=== PATIENT | male | born 1930 | race Caucasian/White ===

== ENCOUNTER 2016-07-16 21:57 | Inpatient (IN) | payer MEDICARE ==
[~2016-07-16] VITALS: Ht 175.3 cm; Wt 81.5 kg
--- NOTE | 2016-07-16 01:30 | NUR ---
Admission: Pt arrived to room 2007 at 2325 from [facility] in stable condition on 2L NC of oxygen with a heparin gtt infusing at 24 mls/hour or 1200 units/hour. Pt denies any SOB or pain. Pt placed on continuous telemtry monitoring and MD paged regarding pt's arrival. Initial assessment completed as charted. Dr. Ramirez and Dr. Mckeon at the bedside. Admission completed as charted. Adjusting heparin gtt per PE heparin protocol. Will cont. to closely monitor.
[~2016-07-16 21:57] MED LIST: CARV12.5 PO; EFF375 PO; LOSA-35 PO; LRZ.5T1 PO; SMV40T PO; ZLP5T PO; [UNRECOGNIZED DRUG - CODE] IM
[2016-07-16 23:35] VITALS: BP 150/88; PULSE 72; RESP 24; O2SAT 94
[2016-07-16 23:36] VITALS: PULSE 73
[2016-07-16 23:42] VITALS: PULSE 75
[2016-07-16] MEDS ORDERED: Ondansetron 2 mg/mL 2 mL Inj IVPUSH PRN (23:50)
[2016-07-16] MEDS ORDERED: Alum-Mag Hydrox-Simeth 30 mL Suspension PO PRN (23:50)
[2016-07-16] MEDS ORDERED: Polyethylene Glycol (PEG) 17 Gm Powder PO PRN (23:50)
[2016-07-16] MEDS ORDERED: HYDROcodone-APAP 5-325 mg Tablet PO PRN (23:50)
[2016-07-16] MEDS ORDERED: Heparin 5,000 Unit/mL Inj IVPUSH PRN (23:55)
[2016-07-17] VITALS (8 sets, daily range): BP systolic 123–159; BP diastolic 78–94; PULSE 64–82; RESP 16–24; O2SAT 94–100
[2016-07-17 00:26] LABS: BASOPHILS % (AUTO) 0.2 % (0-3); EOSINOPHILS % (AUTO) 1.5 % (0-5); MONOCYTES % (AUTO) 10.4 % (4-12); NEUTROPHILS % (AUTO) 71.5 % (40-74); Platelet Count 128 bil/L (150-400)
[2016-07-17] MEDS ORDERED: LORazepam 0.5 mg Tablet PO PRN (00:30)
[2016-07-17] MEDS: Heparin 25K Unit/500mL 0.45 NS 25,000 UNIT in IV Premix 1 EACH IV SCH ×2 (00:40→23:42)
[2016-07-17] MEDS: 0.9% Sodium Chloride 1,000 ML IV SCH ×2 (00:42→10:57)
--- NOTE | 2016-07-17 00:48 | PCM.HPMED ---
Subjective Date of Service Jul 17, 2016 Primary Provider: Admitting Physician: Antonio Ramirez MD Primary Care Physician: Glenn Bernardo MD Attending Physician: Antonio Ramirez MD Admit Status: Direct Admit (From [facility]) Chief Complaint: Pulmonary Embolism History of Present Illness: Patient is an 86 y.o. 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 Patient is a direct admit from [facility] for treatment of pulmonary embolism with right sided heart strain. Patient stated that he was feeling fine until three weeks ago when he began to fee fatigued, he noticed elevation in his blood pressure, had episodes of tachycardia, and worsening balance issues. Patient sought outpatient help, changed his blood pressure medications and started home health PT, all of which did not significantly help. Patient stated that on the evening of 07/15/16 and the morning of 07/16/16 his symptoms dramatically worsened " I could only walk 50 feet before I felt short of breath and had to sit down," he noted that symptoms quickly resolved but he was worried and sought emergency medical care. At the ED patient noted to be tachycardic, short of breath, CT scan of chest was done and showed PE with right sided heart strain, patient was started on Heparin drip and ER notified [facility] ED who prompted direct admit and cardiology consult for heart catheterization and likely TPA administration. Currently patient denies shortness of breath, chest pain, chest pressure, changes in vision, worsening dizziness, loss of balance, numbness, tingling, fever, chills , headache. Review of Systems: Comprehensive review of systems conducted and was negative except for the pertinent positives listed above. Allergies Coded Allergies: ROBERTO Inhibitors (Verified Allergy, Unknown, cough, 07/16/16) celecoxib (Verified Allergy, Unknown, Rash, 07/16/16) Sulfonamide in celebrex Home Medications Carvediol 25 mg BID Clobetasol Allopurinol Butamide Venlafaxine Ativan HCTZ/lisinopril PMH Lichen planus Cervical radiculopathy with residual left arm weakness LBBB Last ECHO EF 45% 2013 Gout PE DVT Sleep Apnea uses CPAP Hyperlipidemia Surgical History Laminectomy C3-7 Cholecystectomy Family History No family history of PE/DVT Social History Hx Alcohol Use: No Hx Substance Use: No Hx Tobacco Use: Yes Smoking Status: Former Smoker (quit 60 years ago) Exam Vital Signs Vital Sign - Last Date Time Temp Pulse Resp B/P Pulse Ox O2 Delivery O2 Flow Rate FiO2 07/16/16 23:36 73 07/16/16 23:35 36.9 24 150/88 94 Nasal Cannula 2.00 Exam General: Alert, Oriented X3, Cooperative, No Acute Distress Head: Normocephalic, atraumatic. External ears normal. Eyes: PERRLA, EOMI. Anicteric sclerae. Mouth: Mouth Normal, Mucous Membranes Moist/[place] Neck: Neck supple with full range of motion. Chest & Lungs: Clear to auscultation bilaterally with no crackles, wheezes, or rhonchi. Cardiovascular: Regular Rate/Rhythm, Normal S1, Normal S2, No Murmurs/Rubs/ Gallops Abdomen: Non-tender, Non-distended, No masses, Normoactive bowel tones, Soft Musculoskeletal: Normal Range of Motion, residual weakness left hand and arm duet o cervical radiculopathy Extremities: No cyanosis/clubbing/edema bilaterally Neurological: Grossly Neurologically Intact, Cranial Nerves 2-12 Intact, Normal Speech, Strength Normal 4/4 ext, Ambulates with cane, Sensation Intact, Cerebellar Function nl Finger-Nose Lab and Diagnostics Result Diagram: 07/17/16 0012 X-Rays, CTs and MRIs CXR [facility] IMPRESSION: Interval improvement with resolution of right upper lobe opacities. Mild interstitial stranding densities may be chronic. Follow up non contrast CT chest might be considered to compare with previous CTA of 06/28/2014 Emil Ray M.D. on 07/16/16 at 1649 [facility] 1. Multiple bilateral pulmonary artery filling defects within all loves consistent with pulmonary embolism. There is also evidence of right heart strain 2. Bilateral scarring in lungs without acute consolidation or evidence of pulmonary infarcts 3. Enlarged mediastinal and hilar lymphnodes with calcifications are non specific but likely represent sequelae of old granulomatous disease Kyle Edwards M.D. 07/16/16 1741 12-lead ECG R 81 NSR LBBB normal axis Qtc 443 no signs if ischemia Assessment & Plan Patient is an 86 y.o. 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 Admitted to hospital from [facility] for treatment of PE with right sided heart strain. Labs done at [facility] : BUN 35, Cr 1.6 eGFR 43.8 Hgb 13.1 Hct38.7, MCV 106.7, PLT 137 D-Dimer 4075 normal <230 1. PE with right heart strain, acute - Patient initially worked up at [facility], CT scan showed PE with right heart strain - Continue Heparin drip for PE per protocol - Check INT/PTT - CBC ordered - CMP ordered - Doppler US LE b/l ordered, pending - Continue Tele - Continuos Pulse Ox - UA ordered - Cardiology aware of patient will see in AM and decide on interventional cath and TPA for PE Chronic conditions Gout - Hold home med Insomnia - Melatonin 5 mg Anxiety -Ativan 0.5 mg PRN Depression -Continue home med Afib - Continue home med Lichen planus -continue home med HTN - Continue home med CODE STATUS: LIMITED INTERVENTIONS, NO VENT, NO INTUBATION DVT prophlyxis: Heparin drip per protocol Patient is admitted under inpatient status with expected length of stay greater than 2 midnights due to severity of presenting symptoms, risk of adverse event, and complexity of treatment plan. Pain Evaluation: Adequate Pain Control Resuscitation Status: Limited Interventions Attending Statement The patient was seen and examined together with Dr. Cheney on 07/16 and I agree with the history, exam and plan as outlined in the note above. DAMEON CHENEY DO Jul 17, 2016 00:48 Antonio Ramirez MD Jul 17, 2016 02:20
[2016-07-17 01:01] LABS: Magnesium 1.7 mg/dL (1.6-2.6)
[2016-07-17 01:20] LABS: APPEARANCE,URINE CLEAR (CLEAR,HAZY); COLOR,URINE YELLOW (YELLOW); OCCULT BLOOD,URINE TRACE (NEGATIVE)
[2016-07-17] MEDS ORDERED: CARV25TA2 PO (04:02)
[2016-07-17] MEDS ORDERED: ZYL100 PO (04:03)
[2016-07-17] MEDS ORDERED: VENL37.57 PO (04:05)
[2016-07-17] MEDS ORDERED: CLOB15CR3 TOPICAL (04:08)
--- NOTE | 2016-07-17 04:41 | ABG ---
DateTimeAnalyzed 04:38:00 -_ pH ____7.491 - 7.350 7.450 pCO2 ___32.2__ -mmHg 35.0 45.0 pO2 ___58.4__ -mmHg 69.0 116 HCO3- ___24.4__ -mmol/L 22.0 26.0 ABE ____1.8__ -mmol/L -2.0 2.0 tHb ___11.1__ -g/dL O2Hb ___88.2__ -% COHb ____1.7__ -% MetHb ____0.8__ -% sO2 ___90.5__ -% 25.0 FIO2 ___21.0__ -% Drawn By MD - Date/Time Notified____ 04:41:00 -_ Liter_Flow ____2.0__ -L/min Oxygen Device 1 __CANNULA - Notified By MD - Notified Whom RN T JIMMY - B 749 -mmHg tO2 ___13.8__ -Vol% [facility] test _Positive -
[2016-07-17 06:14] LABS: BASOPHILS % (AUTO) 0.3 % (0-3); MONOCYTES % (AUTO) 10.1 % (4-12); Mean Corpuscular Hemoglobin 36.1 pg (27.0-35.0); Mean Corpuscular Volume 107.1 fL (81-100); NEUTROPHILS % (AUTO) 70.9 % (40-74); Platelet Count 140 bil/L (150-400)
[2016-07-17] MEDS ORDERED: TEST200V20 IM (07:57)
--- NOTE | 2016-07-17 13:08 | DRSVH ---
[facility] [address] [place] [address] Echocardiogram Report Name: VISH BONILLA Date: 07/17/2016 Height: 69 in Hospital Exam Location: [facility] Weight: 175 lb Gender: Male BSA: 2.0 m2 : 1930 Age: 86 yrs BP: 144/89 mmHg Reason For Study: Pulmonary- Embolism Ordering Physician: Performed By: Parvin Campos Referring Physician: Amna Cardoza Interpretation Summary Left ventricular wall thickness is mild-moderately increased. Left ventricular systolic function is borderline reduced. Left ventricular ejection fraction is estimated to be 50 +/- 5%. Septal motion is consistent with conduction abnormality. There are no focal wall motion abnormalities. Assessment of diastolic parameters indicates a relaxation abnormality of the left ventricle, consistent with normal filling pressures. The right ventricle is normal in size and function. The right ventricular systolic pressure is estimated at 55 mmHg assuming a right atrial pressure of 8 mm Hg. Both atria are normal in size. There is no significant valvular heart disease. The ascending aorta is moderately enlarged. Procedure: A two-dimensional transthoracic echocardiogram with color flow and Doppler was performed. The study quality was technically adequate. There is no prior echocardiogram noted for this patient. The patient was in normal sinus rhythm during the exam. Left Ventricle: Left ventricular wall thickness is mild-moderately increased. The left ventricular cavity is small. Left ventricular systolic function is borderline reduced. Left ventricular ejection fraction is estimated to be 50 +/- 5%. Septal motion is consistent with conduction abnormality. There are no focal wall motion abnormalities. Assessment of diastolic parameters indicates a relaxation abnormality of the left ventricle, consistent with normal filling pressures. Right Ventricle: The right ventricle is normal in size and function. Atria: Both atria are normal in size. There is no Doppler evidence for an interatrial shunt. Mitral Valve: The mitral valve is normal in structure and function. There is no mitral regurgitation noted. Aortic Valve: The aortic valve is normal in structure and function. There is discrete nodular thickening of the non- coronary cusp. No aortic regurgitation is present. Tricuspid Valve: The tricuspid valve is normal in structure and function. There is mild tricuspid regurgitation. TR is best appreciated from subcostal view. The right ventricular systolic pressure is estimated at 55 mmHg assuming a right atrial pressure of 8 mm Hg. Pulmonic Valve: The pulmonic valve is not well visualized. There is a trace or physiologic amount of pulmonic regurgitation. There is no significant valvular heart disease. Great Vessels: The aortic root is normal size. The ascending aorta is moderately enlarged. The aortic arch is normal in size. The IVC is dilated (diameter is greater than 2.1 cm) yet it collapses greater than 50% with a sniff. This suggests a right atrial pressure of 8 mm Hg. Pericardium/ Pleura There is no pericardial effusion. MMode/2D Measurements & Calculations LVIDd: 4.1 cm RA long axis LVOT diam: 2.1 cm LVIDs: 3.2 cm LA A2 area: 17.4 cm Ao root diam FS: 23.3 % LA A4 area: 19.7 cm RA area EPSS: 0.77 cm LA length (vol) asc Aorta Diam IVSd: 1.6 cm : 14.7 cm LVPWd: 1.2 cm LA vol: 46.9 ml RA vol Ao Arch Diam (Prox LA vol index : 37.5 ml Trans): 2.6 cm RA : 19.2 mm2 IVC diam: 2.2 cm LV lindsey. diameter/BSA LV sys. diameter/BSA RVD1 (basal) TAPSE: 2.6 cm (cm/m^2): 2.1 (cm/m^2): 1.6 Doppler Measurements & Calculations Ao V2 max MV E max aj MV E/A: 0.54 TR max aj : 122.6 cm/sec : 50.2 cm/sec Med Peak E' Aj : 342.5 cm/sec Ao max PG MV A max aj TR max PG : 6.0 mmHg : 92.7 cm/sec E/E' med: 14.9 : 46.9 mmHg Ao mean PG MV P1/2t: 111.6 msecLat Peak E' Aj PA V2 max : 48.6 cm/sec LVOT Max Aj E/E' lat: 12.2 PA mean PG : 102.5 cm/sec E/e' average: 13.6 : 0.54 mmHg Pulm A Revs Dur PA Accel Time COURTNEY(I,D): 2.6 cm : 0.10 sec sev ratio MV A dur: 0.12 sec MV dec time MV P1/2t max aj Ao V2 mean LV V1 max PG : 0.38 sec : 81.9 cm/sec MVA(P1/2t): 2.0 cm2 Ao V2 VTI: 26.7 cm LV V1 VTI COURTNEY(V,D): 2.8 cm2 : 20.5 cm PA V2 mean COURTNEY indexed to BSA Pulm A Revs Dur - MV : 35.3 cm/sec (cm^2/m^2): 1.3 A Dur: 0.02 msec Reading Physician:MILENA
--- NOTE | 2016-07-17 14:04 | NUR ---
Social Work Note: Initial Assessment Data& Assessment: EMR reviewed. SW met with pt at bedside to discuss discharge planning, SW role explained. Ollie Chinchilla is a 86 year old male admitted on 07/16/2016 for pulmonary embolism. Pt has [employer] Medicare insurance coverage and sees Amna Cardoza DO for primary care. Pt lives at [facility] in [place], alone, and is independent at baseline. Pt uses a cane for ambulation assistance. Pt is currently open with [facility] PT and RN and would like these services resumed at time of discharge. Pt does not have SNF hx. Pt does not have LTC insurance or [employer]. Pt does have DPOA paperwork completed listing his son Uche as DPOA. SW requested a copy for his chart when possible. Pt does have one local son James who lives in [place] and will transport pt home. Pt will let SW know if his son cannot provide transportation in order to have assistance arranging [employer] taxi. Pt denies any other needs at this time. SW to continue to follow if any needs arise. Plan: Anticipated discharge home to [facility] in [place] with Resume [facility] PT and RN via POV when medically ready. Pt denies any other needs at this time. SW to continue to follow if any needs arise. TRINO Rodriguez Addendum: 07/17/16 at 1409 by ANKUR DAY Amended: Links added.
--- NOTE | 2016-07-17 15:46 | PCM.PNMED ---
Subjective Date of Service Jul 17, 2016 Subjective Patient is resting comfortably in bed and has no current complaints he is on supplemental oxygen. He is awaiting further consultation from cardiology regarding possible thrombolysis for pulmonary emboli. Exam Vital Signs Vital Sign - Last Date Time Temp Pulse Resp B/P Pulse Ox O2 Delivery O2 Flow Rate FiO2 07/17/16 12:33 36.2 71 24 146/90 95 Nasal Cannula 3.50 Intake and Output 07/16/16 07/16/16 07/17/16 Cumulative From/Thru 15:00 23:00 07:00 07/16/16 23:45 - 07/17/16 05:46 Intake Total 649 ml 649 ml Output Total 375 ml 375 ml Balance 274 ml 274 ml Intake Oral 0 ml 0 ml IV Total 649 ml 649 ml Output Urine Total 375 ml 375 ml # Bowel Movements 0 0 Exam Constitutional: Elderly man who appears comfortable and pleasant cooperative Head: Normocephalic atraumatic Eyes: PERRLA DC EOMI Chest: Clear to auscultation Cor: Regular rate and rhythm S1-S2 without murmur Abdomen: Soft nontender bowel sounds present Extremities: No pedal edema Neuro: Alert and oriented 3, motor strength is intact bilaterally Lab and Diagnostics Laboratory Tests 72 Hours Test 07/17/16 00:12 07/17/16 00:50 07/17/16 06:10 07/17/16 12:45 White Blood Count 8.5th/mm3 (3.8-10.1) 7.9th/mm3 (3.8-10.1) Red Blood Count 3.33mil/mm3 (4.40-5.80) 3.10mil/mm3 (4.40-5.80) Hemoglobin 12.0g/dL (13.8-17.2) 11.2g/dL (13.8-17.2) Hematocrit 35.3% (41.0-50.0) 33.2% (41.0-50.0) Mean Corpuscular Volume 106.0fL (81-100) 107.1fL (81-100) Mean Corpuscular Hemoglobin 36.0pg (27.0-35.0) 36.1pg (27.0-35.0) Mean Corpuscular Hemoglobin Concent 34.0% (32.0-37.0) 33.7% (32.0-37.0) Red Cell Distribution Width 14.9% (12.3-15.4) 14.9% (12.3-15.4) Platelet Count 128bil/L (150-400) 140bil/L (150-400) Neutrophils (%) (Auto) 71.5% (40-74) 70.9% (40-74) Lymphocytes (%) (Auto) 15.9% (14-46) 16.3% (14-46) Monocytes (%) (Auto) 10.4% (4-12) 10.1% (4-12) Eosinophils (%) (Auto) 1.5% (0-5) 2.0% (0-5) Basophils (%) (Auto) 0.2% (0-3) 0.3% (0-3) Prothrombin Time 10.7sec (8.1-12.5) Prothromb Time International Ratio 1.00ratio Activated Partial Thromboplast Time 41.9sec (22.8-33.0) 73.4sec (22.8-33.0) Sodium Level 135mEq/L (134-144) Potassium Level 3.9mEq/L (3.5-5.2) Chloride Level 97mEq/L (97-108) Carbon Dioxide Level 22mmol/L (18-29) Blood Urea Nitrogen 32mg/dL (8-27) Creatinine 1.56mg/dL (0.76-1.27) Estimat Glomerular Filtration Rate 45mL/min (>59) Glucose Level 95mg/dL (60-99) Calcium Level 8.0mg/dL (8.5-10.1) Magnesium Level 1.7mg/dL (1.6-2.6) Total Bilirubin 0.8mg/dL (0.0-1.2) Aspartate Amino Transf (AST/SGOT) 20U/L (0-50) Alanine Aminotransferase (ALT/SGPT) 12U/L (0-44) Alkaline Phosphatase 85U/L (25-160) Total Protein 6.5g/dL (6.4-8.4) Albumin 3.1g/dL (3.4-5.0) Urine Color Yellow (YELLOW) Urine Appearance Clear (CLEAR,HAZY) Urine pH 7.0 (5.0-8.0) Urine Specific [place] 1.005 (1.003-1.035) Urine Protein Negativemg/dL (NEG,TRACE) Urine Glucose (UA) Negativemg/dL (NEGATIVE) Urine Ketones Negativemg/dL (NEGATIVE) Urine Occult Blood Trace (NEGATIVE) Urine Nitrite Negative (NEGATIVE) Urine Bilirubin Negative (NEGATIVE) Urine Urobilinogen 1.0mg/dL (NORMAL) Urine Leukocyte Esterase Negative (NEGATIVE) Urine RBC 3-10/hpf (0-2) Urine WBC 0-5/hpf (0-5) Urine Epithelial Cells Occasional/hpf (NONE-MOD) Urine Crystals None seen (NONE SEEN) Urine Bacteria Few/hpf (NONE-FEW) Urine Hyaline Casts None/lpf (NONE) Urine Granular Casts None seen (NONE SEEN) Urine Waxy Casts None seen (NONE SEEN) Urine Red Blood Cell Casts None seen (NONE SEEN) Urine White Blood Cell Casts None seen (NONE SEEN) Urine Mucus None seen (None Seen) Urine Trichomonas None seen (NONE SEEN) Urine Yeast None (NONE SEEN) Urinalysis Comment None Urine Culture Reflexed Not indicated Troponin T 0.010ug/L (0.0-0.011) Test 07/17/16 13:42 Activated Partial Thromboplast Time 30.7sec (22.8-33.0) Result Diagram: 07/17/16 0610 07/17/16 0012 X-Rays, CTs and MRIs CXR [facility] IMPRESSION: Interval improvement with resolution of right upper lobe opacities. Mild interstitial stranding densities may be chronic. Follow up non contrast CT chest might be considered to compare with previous CTA of 06/28/2014 Emil Ray M.D. on 07/16/[address] [place] [address] 1. Multiple bilateral pulmonary artery filling defects within all loves consistent with pulmonary embolism. There is also evidence of right heart strain 2. Bilateral scarring in lungs without acute consolidation or evidence of pulmonary infarcts 3. Enlarged mediastinal and hilar lymphnodes with calcifications are non specific but likely represent sequelae of old granulomatous disease Kyle Edwards M.D. 07/16/16 1741 12-lead ECG R 81 NSR LBBB normal axis Qtc 443 no signs if ischemia Cardiac Echo Impressions Patient Name: VISH BONILLA MR#: [id number] Location: [facility] Ordering Phys: Santosh Schrader MD Date of Service: 07/17/[address] [address] Echocardiogram Report Name: VISH BONILLA Date: 07/17/2016 Height: 69 in Hospital Exam Location: [facility] Weight: 175 lb Gender: Male BSA: 2.0 m2 : 1930 Age: 86 yrs BP: 144/89 mmHg Reason For Study: Pulmonary- Embolism Ordering Physician: Performed By: Parvin Campos Referring Physician: Amna Cardoza Interpretation Summary Left ventricular wall thickness is mild-moderately increased. Left ventricular systolic function is borderline reduced. Left ventricular ejection fraction is estimated to be 50 +/- 5%. Septal motion is consistent with conduction abnormality. There are no focal wall motion abnormalities. Assessment of diastolic parameters indicates a relaxation abnormality of the left ventricle, consistent with normal filling pressures. The right ventricle is normal in size and function. The right ventricular systolic pressure is estimated at 55 mmHg assuming a right atrial pressure of 8 mm Hg. Both atria are normal in size. There is no significant valvular heart disease. The ascending aorta is moderately enlarged. Procedure: A two-dimensional transthoracic echocardiogram with color flow and Doppler was performed. The study quality was technically adequate. There is no prior echocardiogram noted for this patient. The patient was in normal sinus rhythm during the exam. Left Ventricle: Left ventricular wall thickness is mild-moderately increased. The left ventricular cavity is small. Left ventricular systolic function is borderline reduced. Left ventricular ejection fraction is estimated to be 50 +/- 5%. Septal motion is consistent with conduction abnormality. There are no focal wall motion abnormalities. Assessment of diastolic parameters indicates a relaxation abnormality of the left ventricle, consistent with normal filling pressures. Right Ventricle: The right ventricle is normal in size and function. Atria: Both atria are normal in size. There is no Doppler evidence for an interatrial shunt. Mitral Valve: The mitral valve is normal in structure and function. There is no mitral regurgitation noted. Aortic Valve: The aortic valve is normal in structure and function. There is discrete nodular thickening of the non- coronary cusp. No aortic regurgitation is present. Tricuspid Valve: The tricuspid valve is normal in structure and function. There is mild tricuspid regurgitation. TR is best appreciated from subcostal view. The right ventricular systolic pressure is estimated at 55 mmHg assuming a right atrial pressure of 8 mm Hg. Pulmonic Valve: The pulmonic valve is not well visualized. There is a trace or physiologic amount of pulmonic regurgitation. There is no significant valvular heart disease. Great Vessels: The aortic root is normal size. The ascending aorta is moderately enlarged. The aortic arch is normal in size. The IVC is dilated (diameter is greater than 2.1 cm) yet it collapses greater than 50% with a sniff. This suggests a right atrial pressure of 8 mm Hg. Pericardium/ Pleura There is no pericardial effusion. MMode/2D Measurements & Calculations LVIDd: 4.1 cm RA long axis LVOT diam: 2.1 cm LVIDs: 3.2 cm LA A2 area: 17.4 cm Ao root diam FS: 23.3 % LA A4 area: 19.7 cm RA area EPSS: 0.77 cm LA length (vol) asc Aorta Diam IVSd: 1.6 cm : 14.7 cm LVPWd: 1.2 cm LA vol: 46.9 ml RA vol Ao Arch Diam (Prox LA vol index : 37.5 ml Trans): 2.6 cm RA : 19.2 mm2 IVC diam: 2.2 cm LV lindsey. diameter/BSA LV sys. diameter/BSA RVD1 (basal) TAPSE: 2.6 cm (cm/m^2): 2.1 (cm/m^2): 1.6 Doppler Measurements & Calculations Ao V2 max MV E max aj MV E/A: 0.54 TR max aj : 122.6 cm/sec : 50.2 cm/sec Med Peak E' Aj : 342.5 cm/sec Ao max PG MV A max aj TR max PG : 6.0 mmHg : 92.7 cm/sec E/E' med: 14.9 : 46.9 mmHg Ao mean PG MV P1/2t: 111.6 msecLat Peak E' Aj PA V2 max : 48.6 cm/sec LVOT Max Aj E/E' lat: 12.2 PA mean PG : 102.5 cm/sec E/e' average: 13.6 : 0.54 mmHg Pulm A Revs Dur PA Accel Time COURTNEY(I,D): 2.6 cm : 0.10 sec sev ratio MV A dur: 0.12 sec MV dec time MV P1/2t max aj Ao V2 mean LV V1 max PG : 0.38 sec : 81.9 cm/sec MVA(P1/2t): 2.0 cm2 Ao V2 VTI: 26.7 cm LV V1 VTI COURTNEY(V,D): 2.8 cm2 : 20.5 cm PA V2 mean COURTNEY indexed to BSA Pulm A Revs Dur - MV : 35.3 cm/sec (cm^2/m^2): 1.3 A Dur: 0.02 msec Reading Physician:PM Assessment & Plan Patient is an 86 y.o. 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 Admitted to hospital from [facility] for treatment of PE with right sided heart strain. Labs done at [facility] : BUN 35, Cr 1.6 eGFR 43.8 Hgb 13.1 Hct38.7, MCV 106.7, PLT 137 D-Dimer 4075 normal <230 1. PE with right heart strain, acute - Patient initially worked up at [facility], CT scan showed PE with right heart strain - Continue Heparin drip for PE per protocol - Check INT/PTT - CBC ordered - CMP ordered - Doppler US LE b/l ordered, pending - Continue Tele - Continuos Pulse Ox - UA ordered - Cardiology aware of patient will see in AM and decide on interventional cath and TPA for PE -Echocardiogram here did not show any right ventricular strain so await further decision from cardiology regarding possible thrombolysis -Patient does note that he stopped warfarin therapy if he weeks ago due to problems with his INR bouncing significantly he did discuss this with his primary care provider. -Do review the possibility of novel oral anticoagulant therapy which wears simpler to administer without blood checks at discharge Chronic conditions Gout -Continue home med Insomnia - Melatonin 5 mg Anxiety -Ativan 0.5 mg PRN Depression -Continue home med Afib - Continue home med Lichen planus -continue home med HTN - Continue home med CODE STATUS: LIMITED INTERVENTIONS, NO VENT, NO INTUBATION DVT prophlyxis: Heparin drip per protocol Patient is admitted under inpatient status with expected length of stay greater than 2 midnights due to severity of presenting symptoms, risk of adverse event, and complexity of treatment plan. Resuscitation Status: Limited Interventions Time spent 30 minutes Cristela Barkley MD Jul 17, 2016 15:46
--- NOTE | 2016-07-17 19:38 | NUR ---
General status Heparin drip currently running at 20 units/kg/hour. PTT 90.5. Pt tolerating well. No longer NPO, patient now on a heart healthy diet. Appetite good. CBG 94. Groin folds slightly red, MERCHANDISE DELIVERER reported fecal matter found around skin. Buttocks slightly blanchable pink. Pt was able to use BSC with assist.
[2016-07-18] VITALS (9 sets, daily range): BP systolic 119–158; BP diastolic 71–96; PULSE 64–86; RESP 2–22; O2SAT 90–97
--- NOTE | 2016-07-18 05:46 | NUR ---
Telemetry/Heparin SR HR 64 with PAC and IVCD per technical specialist. PTT 85; Heparin @ 20units/kg/hr. Next PTT draw 0600. Care ongoing.
[2016-07-18] MEDS ORDERED: APIX5TAB PO (10:11)
--- NOTE | 2016-07-18 10:13 | PCM.DIMED ---
Discharge Instructions Date of Service Jul 18, 2016 Dates of Hospitalization Jul 16, 2016 at 23:29 Discharge Diagnosis Discharge Diagnosis Pulmonary emboli Diet Heart Healthy Activity Other (as tolerated. Avoid any activities which she may fall or injure yourself due to you taking anticoagulation.) Call your provider Fever or Chills, Shortness of breath, Bleeding, Chest pain, Vomitting, Excessive diarrhea, Weakness (unilateral) Patient Instructions Follow-up Provider: Amna Cardoza DO Follow-up with PCP in: 1 week Cristela Barkley MD Jul 18, 2016 10:13
--- NOTE | 2016-07-18 13:57 | DRSVH ---
PROCEDURE: US VENOUS LEG DUPLEX BILATERAL INDICATIONS: PE TECHNIQUE: Real-time imaging, as well as color and pulse Doppler interrogation, were performed of the deep veins of both legs from the inguinal ligament to the popliteal fossa. COMPARISON: None. FINDINGS: The deep veins are normally compressible, and free of intraluminal thrombus. Color and pu lse Doppler demonstrate normal phasic intravascular flow. There is normal augmentation response to d istal compression maneuver. IMPRESSION: No DVT found over either leg. Dictated by: Raj Taylor M.D. on 07/18/2016 at 13:53 Approved by: Raj Taylor M.D. on 07/18/2016 at 13:54
--- NOTE | 2016-07-18 14:13 | NUR ---
Called and spoke with Maritza at [facility] and let her know patient was discharging today and would need resumption of PT and RN. 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
--- NOTE | 2016-07-18 16:03 | NUR ---
Social Work: Readiness for Discharge D: Pt discussed in morning rounds. Pt was scheduled for discharge however this was cancelled due to issues with the pt's anticoagulation medications. BAR STEWARD obtained co-pay information for Eliquis and provided this to MD. Per MD, pt cannot afford this cost. MD inquired about cost for alternative anticoagulation medications. BAR STEWARD informed MD that historically anticoagulants, other than Warfarin, are very expensive. BAR STEWARD is willing to run pt's insurance benefits for any medications MD team would like. BAR STEWARD met with pt at bedside to discuss discharge plan and assess for any other unmet needs. Pt expressed concerns about paying for his medications. Other than this, pt expresses no concerns about discharge and states he would like to resume HH through [place]. Pt states his son will be transporting him when medically stable. A: pt who lives at [facility] P: Anticipate pt to return to [facility] with resumed Located within [facility] for RN, PT. BAR STEWARD to continue to follow and run insurance/Medication information as requested by MD. BAR STEWARD to continue to follow. TRINO Cates
--- NOTE | 2016-07-18 16:14 | PCM.PNMED ---
Subjective Date of Service Jul 18, 2016 Subjective Patient denies any chest pain. He notes minimal shortness of breath at this time. He did ambulate in the hallway with nursing and did not require any supplemental oxygen. Exam Vital Signs Vital Sign - Last Date Time Temp Pulse Resp B/P Pulse Ox O2 Delivery O2 Flow Rate FiO2 07/18/16 12:18 36.8 66 18 156/87 94 Room Air 07/18/16 08:39 2.00 Intake and Output 07/17/16 07/17/16 07/18/16 Cumulative From/Thru 14:59 22:59 06:59 07/16/16 23:45 - 07/18/16 04:53 Intake Total 1386 ml 440 ml 2475 ml Output Total 450 ml 160 ml 985 ml Balance 936 ml 280 ml 1490 ml Intake Oral 0 ml 440 ml 440 ml IV Total 1386 ml 2035 ml Output Urine Total 450 ml 160 ml 985 ml # Voids 2 2 # Bowel Movements 2 0 2 Exam Constitutional: Elderly male in no acute distress Head: Normocephalic and traumatic Chest: Clear to auscultation Cor: Regular rate and rhythm S1-S2 without murmur Abdomen: Soft nontender bowel sounds present Extremities: No pedal edema Neuro: Alert and oriented 3, motor strength is intact bilaterally Lab and Diagnostics Laboratory Tests 72 Hours Test 07/17/16 00:12 07/17/16 00:50 07/17/16 06:10 07/17/16 12:45 White Blood Count 8.5th/mm3 (3.8-10.1) 7.9th/mm3 (3.8-10.1) Red Blood Count 3.33mil/mm3 (4.40-5.80) 3.10mil/mm3 (4.40-5.80) Hemoglobin 12.0g/dL (13.8-17.2) 11.2g/dL (13.8-17.2) Hematocrit 35.3% (41.0-50.0) 33.2% (41.0-50.0) Mean Corpuscular Volume 106.0fL (81-100) 107.1fL (81-100) Mean Corpuscular Hemoglobin 36.0pg (27.0-35.0) 36.1pg (27.0-35.0) Mean Corpuscular Hemoglobin Concent 34.0% (32.0-37.0) 33.7% (32.0-37.0) Red Cell Distribution Width 14.9% (12.3-15.4) 14.9% (12.3-15.4) Platelet Count 128bil/L (150-400) 140bil/L (150-400) Neutrophils (%) (Auto) 71.5% (40-74) 70.9% (40-74) Lymphocytes (%) (Auto) 15.9% (14-46) 16.3% (14-46) Monocytes (%) (Auto) 10.4% (4-12) 10.1% (4-12) Eosinophils (%) (Auto) 1.5% (0-5) 2.0% (0-5) Basophils (%) (Auto) 0.2% (0-3) 0.3% (0-3) Prothrombin Time 10.7sec (8.1-12.5) Prothromb Time International Ratio 1.00ratio Activated Partial Thromboplast Time 41.9sec (22.8-33.0) 73.4sec (22.8-33.0) Sodium Level 135mEq/L (134-144) Potassium Level 3.9mEq/L (3.5-5.2) Chloride Level 97mEq/L (97-108) Carbon Dioxide Level 22mmol/L (18-29) Blood Urea Nitrogen 32mg/dL (8-27) Creatinine 1.56mg/dL (0.76-1.27) Estimat Glomerular Filtration Rate 45mL/min (>59) Glucose Level 95mg/dL (60-99) Calcium Level 8.0mg/dL (8.5-10.1) Magnesium Level 1.7mg/dL (1.6-2.6) Total Bilirubin 0.8mg/dL (0.0-1.2) Aspartate Amino Transf (AST/SGOT) 20U/L (0-50) Alanine Aminotransferase (ALT/SGPT) 12U/L (0-44) Alkaline Phosphatase 85U/L (25-160) Total Protein 6.5g/dL (6.4-8.4) Albumin 3.1g/dL (3.4-5.0) Urine Color Yellow (YELLOW) Urine Appearance Clear (CLEAR,HAZY) Urine pH 7.0 (5.0-8.0) Urine Specific Salyer 1.005 (1.003-1.035) Urine Protein Negativemg/dL (NEG,TRACE) Urine Glucose (UA) Negativemg/dL (NEGATIVE) Urine Ketones Negativemg/dL (NEGATIVE) Urine Occult Blood Trace (NEGATIVE) Urine Nitrite Negative (NEGATIVE) Urine Bilirubin Negative (NEGATIVE) Urine Urobilinogen 1.0mg/dL (NORMAL) Urine Leukocyte Esterase Negative (NEGATIVE) Urine RBC 3-10/hpf (0-2) Urine WBC 0-5/hpf (0-5) Urine Epithelial Cells Occasional/hpf (NONE-MOD) Urine Crystals None seen (NONE SEEN) Urine Bacteria Few/hpf (NONE-FEW) Urine Hyaline Casts None/lpf (NONE) Urine Granular Casts None seen (NONE SEEN) Urine Waxy Casts None seen (NONE SEEN) Urine Red Blood Cell Casts None seen (NONE SEEN) Urine White Blood Cell Casts None seen (NONE SEEN) Urine Mucus None seen (None Seen) Urine Trichomonas None seen (NONE SEEN) Urine Yeast None (NONE SEEN) Urinalysis Comment None Urine Culture Reflexed Not indicated Troponin T 0.010ug/L (0.0-0.011) Test 07/17/16 13:42 07/17/16 17:55 07/18/16 00:10 07/18/16 06:00 Activated Partial Thromboplast Time 30.7sec (22.8-33.0) 90.5sec (22.8-33.0) 85.1sec (22.8-33.0) 89.1sec (22.8-33.0) Sodium Level 138mEq/L (134-144) Potassium Level 4.2mEq/L (3.5-5.2) Chloride Level 106mEq/L (97-108) Carbon Dioxide Level 21mmol/L (18-29) Blood Urea Nitrogen 21mg/dL (8-27) Creatinine 1.18mg/dL (0.76-1.27) Estimat Glomerular Filtration Rate 62mL/min (>59) Glucose Level 84mg/dL (60-99) Calcium Level 7.5mg/dL (8.5-10.1) Total Bilirubin 0.6mg/dL (0.0-1.2) Aspartate Amino Transf (AST/SGOT) 21U/L (0-50) Alanine Aminotransferase (ALT/SGPT) 10U/L (0-44) Alkaline Phosphatase 77U/L (25-160) Total Protein 5.8g/dL (6.4-8.4) Albumin 2.8g/dL (3.4-5.0) Test 07/18/16 12:28 Activated Partial Thromboplast Time 78.3sec (22.8-33.0) Result Diagram: 07/17/16 0610 07/18/16 0600 X-Rays, CTs and MRIs CXR [facility] IMPRESSION: Interval improvement with resolution of right upper lobe opacities. Mild interstitial stranding densities may be chronic. Follow up non contrast CT chest might be considered to compare with previous CTA of 06/28/2014 Emil Ray M.D. on 07/16/[address] [facility] 1. Multiple bilateral pulmonary artery filling defects within all loves consistent with pulmonary embolism. There is also evidence of right heart strain 2. Bilateral scarring in lungs without acute consolidation or evidence of pulmonary infarcts 3. Enlarged mediastinal and hilar lymphnodes with calcifications are non specific but likely represent sequelae of old granulomatous disease Kyle Edwards M.D. 07/16/16 1741 12-lead ECG R 81 NSR LBBB normal axis Qtc 443 no signs if ischemia Cardiac Echo Impressions Patient Name: VISH BONILLA MR#: [id number] Location: [facility] Ordering Phys: Santosh Schrader MD Date of Service: 07/17/[address] [place] [id number] Echocardiogram Report Name: VISH BONILLA AStudy Date: 07/17/2016 Height: 69 in Hospital Exam Location: [facility] Weight: 175 lb Gender: Male BSA: 2.0 m2 : 1930 Age: 86 yrs BP: 144/89 mmHg Reason For Study: Pulmonary- Embolism Ordering Physician: Performed By: Parvin Campos Referring Physician: Amna Cardoza Interpretation Summary Left ventricular wall thickness is mild-moderately increased. Left ventricular systolic function is borderline reduced. Left ventricular ejection fraction is estimated to be 50 +/- 5%. Septal motion is consistent with conduction abnormality. There are no focal wall motion abnormalities. Assessment of diastolic parameters indicates a relaxation abnormality of the left ventricle, consistent with normal filling pressures. The right ventricle is normal in size and function. The right ventricular systolic pressure is estimated at 55 mmHg assuming a right atrial pressure of 8 mm Hg. Both atria are normal in size. There is no significant valvular heart disease. The ascending aorta is moderately enlarged. Procedure: A two-dimensional transthoracic echocardiogram with color flow and Doppler was performed. The study quality was technically adequate. There is no prior echocardiogram noted for this patient. The patient was in normal sinus rhythm during the exam. Left Ventricle: Left ventricular wall thickness is mild-moderately increased. The left ventricular cavity is small. Left ventricular systolic function is borderline reduced. Left ventricular ejection fraction is estimated to be 50 +/- 5%. Septal motion is consistent with conduction abnormality. There are no focal wall motion abnormalities. Assessment of diastolic parameters indicates a relaxation abnormality of the left ventricle, consistent with normal filling pressures. Right Ventricle: The right ventricle is normal in size and function. Atria: Both atria are normal in size. There is no Doppler evidence for an interatrial shunt. Mitral Valve: The mitral valve is normal in structure and function. There is no mitral regurgitation noted. Aortic Valve: The aortic valve is normal in structure and function. There is discrete nodular thickening of the non- coronary cusp. No aortic regurgitation is present. Tricuspid Valve: The tricuspid valve is normal in structure and function. There is mild tricuspid regurgitation. TR is best appreciated from subcostal view. The right ventricular systolic pressure is estimated at 55 mmHg assuming a right atrial pressure of 8 mm Hg. Pulmonic Valve: The pulmonic valve is not well visualized. There is a trace or physiologic amount of pulmonic regurgitation. There is no significant valvular heart disease. Great Vessels: The aortic root is normal size. The ascending aorta is moderately enlarged. The aortic arch is normal in size. The IVC is dilated (diameter is greater than 2.1 cm) yet it collapses greater than 50% with a sniff. This suggests a right atrial pressure of 8 mm Hg. Pericardium/ Pleura There is no pericardial effusion. MMode/2D Measurements & Calculations LVIDd: 4.1 cm RA long axis LVOT diam: 2.1 cm LVIDs: 3.2 cm LA A2 area: 17.4 cm Ao root diam FS: 23.3 % LA A4 area: 19.7 cm RA area EPSS: 0.77 cm LA length (vol) asc Aorta Diam IVSd: 1.6 cm : 14.7 cm LVPWd: 1.2 cm LA vol: 46.9 ml RA vol Ao Arch Diam (Prox LA vol index : 37.5 ml Trans): 2.6 cm RA : 19.2 mm2 IVC diam: 2.2 cm LV lindsey. diameter/BSA LV sys. diameter/BSA RVD1 (basal) TAPSE: 2.6 cm (cm/m^2): 2.1 (cm/m^2): 1.6 Doppler Measurements & Calculations Ao V2 max MV E max aj MV E/A: 0.54 TR max aj : 122.6 cm/sec : 50.2 cm/sec Med Peak E' Aj : 342.5 cm/sec Ao max PG MV A max aj TR max PG : 6.0 mmHg : 92.7 cm/sec E/E' med: 14.9 : 46.9 mmHg Ao mean PG MV P1/2t: 111.6 msecLat Peak E' Aj PA V2 max : 48.6 cm/sec LVOT Max Aj E/E' lat: 12.2 PA mean PG : 102.5 cm/sec E/e' average: 13.6 : 0.54 mmHg Pulm A Revs Dur PA Accel Time COURTNEY(I,D): 2.6 cm : 0.10 sec sev ratio MV A dur: 0.12 sec MV dec time MV P1/2t max aj Ao V2 mean LV V1 max PG : 0.38 sec : 81.9 cm/sec MVA(P1/2t): 2.0 cm2 Ao V2 VTI: 26.7 cm LV V1 VTI COURTNEY(V,D): 2.8 cm2 : 20.5 cm PA V2 mean COURTNEY indexed to BSA Pulm A Revs Dur - MV : 35.3 cm/sec (cm^2/m^2): 1.3 A Dur: 0.02 msec Reading Physician:PM Additional Diagnostics Patient Name: VISH BONILLA MR#: [id number] Location: [facility] Ordering Phys: DAMEON CHENEY DO Date of Service: 07/18/16 0500 PROCEDURE: US VENOUS LEG DUPLEX BILATERAL INDICATIONS: PE TECHNIQUE: Real-time imaging, as well as color and pulse Doppler interrogation, were performed of the deep veins of both legs from the inguinal ligament to the popliteal fossa. COMPARISON: None. FINDINGS: The deep veins are normally compressible, and free of intraluminal thrombus. Color and pulse Doppler demonstrate normal phasic intravascular flow. There is normal augmentation response to distal compression maneuver. IMPRESSION: No DVT found over either leg. Dictated by: Raj Taylor M.D. on 07/18/2016 at 13:53 Approved by: Raj Taylor M.D. on 07/18/2016 at 13:54 Assessment & Plan Patient is an 86 y.o. 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 Admitted to hospital from [facility] for treatment of PE with right sided heart strain. Labs done at [facility] : BUN 35, Cr 1.6 eGFR 43.8 Hgb 13.1 Hct38.7, MCV 106.7, PLT 137 D-Dimer 4075 normal <230 1. PE multiple, acute, present on admission - Patient initially worked up at [facility], CT scan showed PE with right heart strain - Continue Heparin drip for PE per protocol - Check INT/PTT - CBC ordered - CMP ordered - Doppler US LE b/l ordered, and returned as negative - Continue Tele - Continuos Pulse Ox - UA ordered - Cardiology aware of patient will see in AM and decide on interventional cath and TPA for PE -Echocardiogram here did not show any right ventricular strain so await further decision from cardiology regarding possible thrombolysis -Patient does note that he stopped warfarin therapy if he weeks ago due to problems with his INR bouncing significantly he did discuss this with his primary care provider. -Do review the possibility of novel oral anticoagulant therapy which is simpler to administer without blood checks at discharge -Did place prescription for apixaban through pharmacy and cause of this is several hundred dollars. -Patient was also seen by pulmonary consultation today as requested by cardiology. Chronic conditions Gout -Continue home med Insomnia - Melatonin 5 mg Anxiety -Ativan 0.5 mg PRN Depression -Continue home med Afib - Continue home med Lichen planus -continue home med HTN - Continue home med CODE STATUS: LIMITED INTERVENTIONS, NO VENT, NO INTUBATION DVT prophlyxis: Heparin drip per protocol Patient is admitted under inpatient status with expected length of stay greater than 2 midnights due to severity of presenting symptoms, risk of adverse event, and complexity of treatment plan. Resuscitation Status: Limited Interventions Time spent 30 minutes Cristela Barkley MD Jul 18, 2016 16:14
--- NOTE | 2016-07-18 16:50 | PCM.CHPMED ---
Subjective Date of Service: Jul 18, 2016 Provider requesting consult: Santosh Schrader MD Primary Physician: Admitting Physician: Antonio Ramirez MD Primary Care Physician: Amna Cardoza DO Attending Physician: Antonio Ramirez MD Chief Complaint: Chief Complaint: PE anticoagulation consult History of Present Illness: Pulmonology consult: Attending provider Dr. Hutton. Requesting provider Dr. Schrader. Reason for consult; PE with anticoagulation barriers. Mr. Chinchilla is a 86-year-old male with past medical history for PE, DVT, depression, A. fib who was a direct admit from [facility] for treatment of a pulmonary embolism with right-sided heart strain. Previous to hospital admission patient was anticoagulated with warfarin however due to fluctuating INR levels (which he reports being due to moderate alcohol consumption and green leafy vegetables) warfarin was discontinued approximately 3 weeks ago. Pt does not want to resume taking warfarin and when told that he may have to stay in hospital for 1-2 additional days for heparin administration and to solidify home anticoagulation medication he stated that he has lived a good life and he is ready to go further stating that his 6 weeks ago and he is feeling very depressed about this. During interview patient opened up and shared that he was for 57 years, received his PhD from [employer] working at [employer] for most of his career. 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 He states that if his health were to return to state that would enable him to continue playing music he would have a renewed vigor with life. PMH Past Medical History Lichen planus Cervical radiculopathy with residual left arm weakness LBBB Last ECHO EF 45% 2013 Gout PE DVT Sleep Apnea uses CPAP Hyperlipidemia Bedside Blood Glucose: 119 Surgical History Laminectomy C3-7 Cholecystectomy Home Medications Carvediol 25 mg BID Clobetasol Allopurinol Butamide Venlafaxine Ativan HCTZ/lisinopril Allergies: Coded Allergies: ROBERTO Inhibitors (Verified Allergy, Unknown, cough, 07/16/16) celecoxib (Verified Allergy, Unknown, Rash, 07/16/16) Sulfonamide in celebrex Social History Occupation: engineerHx Alcohol Use: YesAlcoholic Drinks Per Day: 1 to 3 ounces dailyHx Substance Use: NoHx Tobacco Use: Yes Smoking Status: Former Smoker (quit 60 years ago) Exam Vital Signs Vital Sign - Last Date Time Temp Pulse Resp B/P Pulse Ox O2 Delivery O2 Flow Rate FiO2 07/18/16 16:36 36.5 66 22 145/96 90 Room Air 07/18/16 08:39 2.00 Intake and Output 07/17/16 07/17/16 07/18/16 Cumulative From/Thru 15:00 23:00 07:00 07/16/16 23:45 - 07/18/16 04:53 Intake Total 1386 ml 440 ml 2475 ml Output Total 450 ml 160 ml 985 ml Balance 936 ml 280 ml 1490 ml Intake Oral 0 ml 440 ml 440 ml IV Total 1386 ml 2035 ml Output Urine Total 450 ml 160 ml 985 ml # Voids 2 2 # Bowel Movements 2 0 2 General: Alert, Oriented X3, Cooperative Eyes: PERRLA Chest & Lungs: Chest Wall Normal, Auscultation (Clear to auscultation) Cardiovascular: Exam Unremarkable, Regular Rate/Rhythm Abdomen: Non-tender Neurological: Grossly Neurologically Intact Lab and Diagnostics Result Diagram: 07/17/16 0610 07/18/16 0600 Additional Diagnostics: . US VENOUS LEG DUPLEX BILATERAL IMPRESSION: No DVT found over either leg. Echocardiogram Report Interpretation Summary Left ventricular wall thickness is mild-moderately increased. Left ventricular systolic function is borderline reduced. Left ventricular ejection fraction is estimated to be 50 +/- 5%. Septal motion is consistent with conduction abnormality. There are no focal wall motion abnormalities. Assessment of diastolic parameters indicates a relaxation abnormality of the left ventricle, consistent with normal filling pressures. The right ventricle is normal in size and function. The right ventricular systolic pressure is estimated at 55 mmHg assuming a right atrial pressure of 8 mm Hg. Both atria are normal in size. There is no significant valvular heart disease. The ascending aorta is moderately enlarged. Assessment & Plan Assessment 86 y/o male with PMH of PE, DVT, A-fib, pulmonology consult to help coordinate anticoagulation strategies. Assessment: Pulmonary embolism with R heart strain seen on ECHO. - Pt will continue to remain on PE protocol with IV heparin for two more days. - Pt will not resume warfarin secondary to lifestyle and monetary concerns - Elequis was considered but Pt's insurance would not cover enough of a Co-Pay to make this affordable. - Social work and primary team are currently elucidating what oral anticoagulation Pt can be discharged with - Will continue to follow Pt with primary team Critical care time 60 min Problems: Pain Evaluation: Adequate Pain Control Resuscitation Status: Limited Interventions Attending Statement The patient was seen and examined together with Dr. Funez on 07/18/2016 and I agree with the history, exam and plan as outlined in the note above. MITCHEL FUNEZ DO Jul 18, 2016 16:50 Rajan Hutton MD Aug 19, 2016 13:09
[2016-07-18] MEDS: Heparin 25K Unit/500mL 0.45 NS 25,000 UNIT in IV Premix 1 EACH IV SCH (16:51)
--- NOTE | 2016-07-18 18:25 | NUR ---
Heparin/activity Cardiac: denies chest pain. Tele: SR HR 60s, PAC,IVCD. Resp: Pt denies SOB at rest or with transfers to the commode. SPO2 99% on 4L NC this AM, titrated down to 2L, SPO2 97% and tolerating well. Pt put on RA, SPO2 94-97%. Pt ambulated >200ft in [place] with staff, SPO2 steady at 94%. No complaints of dizziness after first 30 sec of walking. GI/: Denies n/v/d Neuro: A&Ox3, MARTINES, pt is somewhat depressed about 's 6 weeks ago. Pt up in chair for meals and ambulating with staff in [place] using FWW.
--- NOTE | 2016-07-18 23:19 | CONS ---
[address] [address] CONSULTATION REPORT PATIENT: VISH BONILLA : 1930 MR#: [id number] ADMIT: 07/16/2016 JOB ID: [id number] DATE OF SERVICE: CHIEF COMPLAINT: Pulmonary embolus. HISTORY OF PRESENT ILLNESS: I was asked to see this elderly gentleman who has bilateral PE for consideration of catheter-directed thrombolysis. This 86-year-old gentleman presented to [facility] from where he was transferred after diagnosis of PE. A CT scan showed bilateral PE with evidence of right heart strain. The main pulmonary trunk and proximal pulmonary arteries are free of thrombus. There is thrombus noted bilaterally in all the lobes. The patient apparently started feeling fatigued about three weeks ago. He noticed some bouts of tachycardia. He did not have any chest pain. He got short of breath to the point where he could not walk 50 feet. He went to the emergency department where an elevated D-dimer led to a CT scan and he was diagnosed with PE. At the time of interview in the morning of July 17 the patient was pain free. He could lie flat and speak in full sentences. He was mildly tachypneic, breathing at around 18-20 breaths a minute. His vitals were stable. REVIEW OF SYSTEMS: The patient denies any recent strokes. No GI or bleeding. No upcoming surgeries. The patient denied any history of recent travel. He was not sick and has not been bedridden. There is no history of coagulation disorders in his family. The rest of review of system is as per HPI. ALLERGIES: 1. ROBERTO INHIBITORS. 2. CELEBREX. MEDICATIONS AT HOME: Carvedilol, bumetanide, venlafaxine, Ativan, hydrochlorothiazide and clobetasol. PAST MEDICAL HISTORY: Lichen planus, cervical radiculopathy, mild LV dysfunction, gout, sleep apnea, dyslipidemia, status post cholecystectomy. FAMILY HISTORY: Negative for PE or DVT. Negative for premature coronary artery disease. 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 He is a nonsmoker and nondrinker. PHYSICAL EXAMINATION: No acute distress. Pulse 80, blood pressure 130/70. Neck: Supple. No JVD. Chest: Few rhonchi scattered. Heart sounds S1, S2, regular widely split S2. No gallops. Abdomen: Soft. Extremities: Negative for CCE. There is no calf tenderness bilaterally. FURNACE PROCESS PLANT OPERATOR: Alert and oriented x3. Lab data was reviewed. CT scan was also reviewed. His EKG showed sinus rhythm with left bundle-branch block. His echocardiogram showed elevated PA pressure but no significant evidence of right ventricular failure or dysfunction. ASSESSMENT AND PLAN: This gentleman has extensive pulmonary embolus. There is no obvious etiology. He has already been started on heparin. He needs to be on long-term anticoagulation. At this point, there is no indication for catheter-directed thrombolysis and there is no indication for placement of an IVC filter either. I have discussed all this with the patient. I have not made any formal arrangements to see him in followup, but would be happy to reassess him on an as needed basis. I thank you for letting me be involved in his care.
[2016-07-19] VITALS (7 sets, daily range): BP systolic 131–166; BP diastolic 75–89; PULSE 65–73; RESP 18–26; O2SAT 92–98
[2016-07-19 04:44] LABS: BASOPHILS % (AUTO) 0.4 % (0-3); EOSINOPHILS % (AUTO) 2.7 % (0-5); MONOCYTES % (AUTO) 8.9 % (4-12); Mean Corpuscular Hemoglobin 35.3 pg (27.0-35.0); Mean Corpuscular Volume 108.3 fL (81-100); NEUTROPHILS % (AUTO) 71.2 % (40-74); Platelet Count 151 bil/L (150-400)
--- NOTE | 2016-07-19 05:57 | NUR ---
Heparin Heparin gtt infusing at 19units/kg/hr. PTT therapeutic without any s/s active bleeding. Next PTT ordered for 07/20 with am labs. Currently resting without any complaints.
[2016-07-19] MEDS ORDERED: DABI150C PO (07:39)
[2016-07-19] MEDS ORDERED: RIVA15TA PO (07:39)
[2016-07-19] MEDS: Heparin 25K Unit/500mL 0.45 NS 25,000 UNIT in IV Premix 1 EACH IV SCH ×3 (10:02→15:27)
--- NOTE | 2016-07-19 11:03 | NUR ---
Faxed new scripts to [facility] per [employer]. Called and let them know I needed copay cost only [phone] Addendum: 07/19/16 at 1202 by FERMIN ELIZONDO Pradaxa is a copay of $15 Xarelto is non covered medication and would need to have prior authorization is this is the preferred drug. Updated [employer]
--- NOTE | 2016-07-19 12:19 | NUR ---
Anxious Pt anxious this shift regarding bridge medications after Heparin Drip. Encouraged pt. Pt currently on Heparin drip at 19 units/kg/hr. Son at bedside. Care continues.
--- NOTE | 2016-07-19 15:06 | NUR ---
Social Work: Readiness for Discharge D: Pt discussed in am rounds. Pt likely not to be ready for d/c until Friday at the earliest. PLANNED GIVING OFFICER provided with two prescriptions for Xorelto and Pradaxa for insurance coverage verification. Xorelto requires pre-authorization and the Pradaxa is $15. MD updated. EMR reviewed; no further d/c needs identified at this time. A: Pt who is from [facility]. P: Anticipate pt to return home when medically stable with resumed HH through [facility]. PLANNED GIVING OFFICER to continue to follow. TRINO Cates
--- NOTE | 2016-07-19 15:47 | PCM.PNMED ---
Subjective Date of Service Jul 19, 2016 Subjective Patient appears bit anxious today. He is concerned regarding plan of care with regards to discharge on oral anticoagulants. We did braun out accident for him and again it was approximately $400 out of pocket for him. Currently care management is looking into braun of other medications. Exam Vital Signs Vital Sign - Last Date Time Temp Pulse Resp B/P Pulse Ox O2 Delivery O2 Flow Rate FiO2 07/19/16 12:41 36.6 65 24 156/78 98 Room Air 07/18/16 08:39 2.00 Intake and Output 07/18/16 07/18/16 07/19/16 Cumulative From/Thru 15:00 23:00 07:00 07/16/16 23:45 - 07/19/16 06:22 Intake Total 1037 ml 536 ml 4048 ml Output Total 1000 ml 550 ml 2535 ml Balance 37 ml -14 ml 1513 ml Intake Oral 690 ml 536 ml 1666 ml IV Total 347 ml 2382 ml Output Urine Total 1000 ml 550 ml 2535 ml # Voids 2 4 # Bowel Movements 2 0 4 Exam Constitutional: Appears slightly anxious but otherwise is pleasant and cooperative Head: Normocephalic atraumatic Chest: Clear to auscultation Cor: Regular rate and rhythm S1-S2 without murmur Abdomen: Soft nontender bowel sounds present Extremities: No pedal edema Neuro: Alert and oriented 3, motor strength is intact bilaterally Lab and Diagnostics Result Diagram: 07/19/16 0406 07/19/16 0406 X-Rays, CTs and MRIs CXR [facility] IMPRESSION: Interval improvement with resolution of right upper lobe opacities. Mild interstitial stranding densities may be chronic. Follow up non contrast CT chest might be considered to compare with previous CTA of 06/28/2014 Emil Ray M.D. on 07/16/16 at 1649 [facility] 1. Multiple bilateral pulmonary artery filling defects within all loves consistent with pulmonary embolism. There is also evidence of right heart strain 2. Bilateral scarring in lungs without acute consolidation or evidence of pulmonary infarcts 3. Enlarged mediastinal and hilar lymphnodes with calcifications are non specific but likely represent sequelae of old granulomatous disease Kyle Edwards M.D. 07/16/16 1741 12-lead ECG R 81 NSR LBBB normal axis Qtc 443 no signs if ischemia Cardiac Echo Impressions Patient Name: VISH BONILLA MR#: [id number] Location: [facility] Ordering Phys: Santosh Schrader MD Date of Service: 07/17/[address] [place] [address] Echocardiogram Report Name: VISH BONILLA AStudy Date: 07/17/2016 Height: 69 in Hospital Exam Location: [facility] Weight: 175 lb Gender: Male BSA: 2.0 m2 : 1930 Age: 86 yrs BP: 144/89 mmHg Reason For Study: Pulmonary- Embolism Ordering Physician: Performed By: Parvin Campos Referring Physician: Amna Cardoza Interpretation Summary Left ventricular wall thickness is mild-moderately increased. Left ventricular systolic function is borderline reduced. Left ventricular ejection fraction is estimated to be 50 +/- 5%. Septal motion is consistent with conduction abnormality. There are no focal wall motion abnormalities. Assessment of diastolic parameters indicates a relaxation abnormality of the left ventricle, consistent with normal filling pressures. The right ventricle is normal in size and function. The right ventricular systolic pressure is estimated at 55 mmHg assuming a right atrial pressure of 8 mm Hg. Both atria are normal in size. There is no significant valvular heart disease. The ascending aorta is moderately enlarged. Procedure: A two-dimensional transthoracic echocardiogram with color flow and Doppler was performed. The study quality was technically adequate. There is no prior echocardiogram noted for this patient. The patient was in normal sinus rhythm during the exam. Left Ventricle: Left ventricular wall thickness is mild-moderately increased. The left ventricular cavity is small. Left ventricular systolic function is borderline reduced. Left ventricular ejection fraction is estimated to be 50 +/- 5%. Septal motion is consistent with conduction abnormality. There are no focal wall motion abnormalities. Assessment of diastolic parameters indicates a relaxation abnormality of the left ventricle, consistent with normal filling pressures. Right Ventricle: The right ventricle is normal in size and function. Atria: Both atria are normal in size. There is no Doppler evidence for an interatrial shunt. Mitral Valve: The mitral valve is normal in structure and function. There is no mitral regurgitation noted. Aortic Valve: The aortic valve is normal in structure and function. There is discrete nodular thickening of the non- coronary cusp. No aortic regurgitation is present. Tricuspid Valve: The tricuspid valve is normal in structure and function. There is mild tricuspid regurgitation. TR is best appreciated from subcostal view. The right ventricular systolic pressure is estimated at 55 mmHg assuming a right atrial pressure of 8 mm Hg. Pulmonic Valve: The pulmonic valve is not well visualized. There is a trace or physiologic amount of pulmonic regurgitation. There is no significant valvular heart disease. Great Vessels: The aortic root is normal size. The ascending aorta is moderately enlarged. The aortic arch is normal in size. The IVC is dilated (diameter is greater than 2.1 cm) yet it collapses greater than 50% with a sniff. This suggests a right atrial pressure of 8 mm Hg. Pericardium/ Pleura There is no pericardial effusion. MMode/2D Measurements & Calculations LVIDd: 4.1 cm RA long axis LVOT diam: 2.1 cm LVIDs: 3.2 cm LA A2 area: 17.4 cm Ao root diam FS: 23.3 % LA A4 area: 19.7 cm RA area EPSS: 0.77 cm LA length (vol) asc Aorta Diam IVSd: 1.6 cm : 14.7 cm LVPWd: 1.2 cm LA vol: 46.9 ml RA vol Ao Arch Diam (Prox LA vol index : 37.5 ml Trans): 2.6 cm RA : 19.2 mm2 IVC diam: 2.2 cm LV lindsey. diameter/BSA LV sys. diameter/BSA RVD1 (basal) TAPSE: 2.6 cm (cm/m^2): 2.1 (cm/m^2): 1.6 Doppler Measurements & Calculations Ao V2 max MV E max aj MV E/A: 0.54 TR max aj : 122.6 cm/sec : 50.2 cm/sec Med Peak E' Aj : 342.5 cm/sec Ao max PG MV A max aj TR max PG : 6.0 mmHg : 92.7 cm/sec E/E' med: 14.9 : 46.9 mmHg Ao mean PG MV P1/2t: 111.6 msecLat Peak E' Aj PA V2 max : 48.6 cm/sec LVOT Max Aj E/E' lat: 12.2 PA mean PG : 102.5 cm/sec E/e' average: 13.6 : 0.54 mmHg Pulm A Revs Dur PA Accel Time COURTNEY(I,D): 2.6 cm : 0.10 sec sev ratio MV A dur: 0.12 sec MV dec time MV P1/2t max aj Ao V2 mean LV V1 max PG : 0.38 sec : 81.9 cm/sec MVA(P1/2t): 2.0 cm2 Ao V2 VTI: 26.7 cm LV V1 VTI COURTNEY(V,D): 2.8 cm2 : 20.5 cm PA V2 mean COURTNEY indexed to BSA Pulm A Revs Dur - MV : 35.3 cm/sec (cm^2/m^2): 1.3 A Dur: 0.02 msec Reading Physician:PM Additional Diagnostics Patient Name: VISH BONILLA MR#: [id number] Location: [facility] Ordering Phys: DAMEON CHENEY DO Date of Service: 07/18/16 0500 PROCEDURE: US VENOUS LEG DUPLEX BILATERAL INDICATIONS: PE TECHNIQUE: Real-time imaging, as well as color and pulse Doppler interrogation, were performed of the deep veins of both legs from the inguinal ligament to the popliteal fossa. COMPARISON: None. FINDINGS: The deep veins are normally compressible, and free of intraluminal thrombus. Color and pulse Doppler demonstrate normal phasic intravascular flow. There is normal augmentation response to distal compression maneuver. IMPRESSION: No DVT found over either leg. Dictated by: Raj Taylor M.D. on 07/18/2016 at 13:53 Approved by: Raj Taylor M.D. on 07/18/2016 at 13:54 Assessment & Plan Patient is an 86 y.o. 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 Admitted to hospital from [facility] for treatment of PE with right sided heart strain. Labs done at [facility] : BUN 35, Cr 1.6 eGFR 43.8 Hgb 13.1 Hct38.7, MCV 106.7, PLT 137 D-Dimer 4075 normal <230 1. PE multiple, acute, present on admission - Patient initially worked up at [facility], CT scan showed PE with right heart strain - Continue Heparin drip for PE per protocol - Check INT/PTT - CBC ordered - CMP ordered - Doppler US LE b/l ordered, and returned as negative - Continue Tele - Continuos Pulse Ox - UA ordered - Cardiology aware of patient will see in AM and decide on interventional cath and TPA for PE -Echocardiogram here did not show any right ventricular strain so await further decision from cardiology regarding possible thrombolysis -Patient does note that he stopped warfarin therapy if he weeks ago due to problems with his INR bouncing significantly he did discuss this with his primary care provider. -Do review the possibility of novel oral anticoagulant therapy which is simpler to administer without blood checks at discharge -Did place prescription for apixaban through pharmacy and cause of this is several hundred dollars. -Patient was also seen by pulmonary consultation today as requested by cardiology. -Await further options regarding oral anticoagulation which is reasonable priced for the patient. Per case management, Pradaxa will cost him $15 per month. However it is recommended that patient be on parenteral anticoagulation for 5-10 days prior to initiating that. Today is day 3. # Possible EtOH withdrawal, acute, not present on admission -History is gotten from son by RN today the patient has a daily significant alcohol ingestion. He starts drinking about 11 AM and drinks throughout the day. By this history he has been doing that for approximately 2 years. -We will go ahead and place on EtOH CIWA protocol Chronic conditions Gout -Continue home med Insomnia - Melatonin 5 mg Anxiety -Ativan 0.5 mg PRN Depression -Continue home med Afib - Continue home med Lichen planus -continue home med HTN - Continue home med CODE STATUS: LIMITED INTERVENTIONS, NO VENT, NO INTUBATION DVT prophlyxis: Heparin drip per protocol Patient is admitted under inpatient status with expected length of stay greater than 2 midnights due to severity of presenting symptoms, risk of adverse event, and complexity of treatment plan. Resuscitation Status: Limited Interventions Time spent 30 minutes Cristela Barkley MD Jul 19, 2016 15:47
--- NOTE | 2016-07-19 16:13 | NUR ---
CIWA Pt son stated pt has been drinking daily for past two years starting at 1100. Pt confirmed and stated he drinks a pint or less of Vodka from 1100 throughout day till evening 7 days per week for past two years. 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 Notified MD. implemented CIWA protocol. This is day three. CIWA score of 8. Care continues.
[2016-07-20] VITALS (9 sets, daily range): BP systolic 109–143; BP diastolic 67–86; PULSE 63–78; RESP 16–24; O2SAT 90–97
[2016-07-20] MEDS: Heparin 25K Unit/500mL 0.45 NS 25,000 UNIT in IV Premix 1 EACH IV SCH ×2 (03:06→19:34)
--- NOTE | 2016-07-20 05:55 | NUR ---
CIWA/ Activity pt's CIWA score at 6 all night. Pt ambulating in hallway with FWW and SBA, denies any SOB, tolerates activity very well.
[2016-07-20] MEDS: Multivit-Miner-Folic Acid-Iron Tablet PO SCH (08:54)
--- NOTE | 2016-07-20 15:38 | PCM.PNMED ---
Subjective Date of Service Jul 20, 2016 Subjective 86-year-old man with history of pulmonary embolism and atrial fibrillation presents with acute shortness of breath and bilateral PEs. Patient states that respiratory status is markedly improved since admission. No productive cough. No fevers or chills. Appetite is good. He is able to ambulate. Exam Vital Signs Vital Sign - Last Date Time Temp Pulse Resp B/P Pulse Ox O2 Delivery O2 Flow Rate FiO2 07/20/16 12:26 36.5 64 24 109/67 97 Room Air 07/18/16 08:39 2.00 Intake and Output 07/19/16 07/19/16 07/20/16 Cumulative From/Thru 15:00 23:00 07:00 07/16/16 23:45 - 07/20/16 06:37 Intake Total 400 ml 1920 ml 6368 ml Output Total 600 ml 320 ml 3455 ml Balance -200 ml 1600 ml 2913 ml Intake Oral 400 ml 849 ml 2915 ml IV Total 1071 ml 3453 ml Output Urine Total 600 ml 320 ml 3455 ml # Voids 4 # Bowel Movements 1 2 7 Exam General: Elderly gentleman in no acute distress HEENT: sclerae anicteric, oral mucosa moist Neck: no JVD Chest: clear to auscultation Cardiac: S1S2, no murmur Abdomen: BS normal, non-tender Extremities: No pedal edema Neuro: A&O, cranial nerves symmetric, motor strength 5/5, coordination normal IVs and Medications Medications Reviewed: Medications were reviewed in detail Lab and Diagnostics Labs done at [facility] time of admission : BUN 35, Cr 1.6 eGFR 43.8 Hgb 13.1 Hct38.7, MCV 106.7, PLT 137 D-Dimer 4075 normal <230 Result Diagram: 07/19/16 0406 07/20/16 0412 X-Rays, CTs and MRIs CXR [facility] IMPRESSION: Interval improvement with resolution of right upper lobe opacities. Mild interstitial stranding densities may be chronic. Follow up non contrast CT chest might be considered to compare with previous CTA of 06/28/2014 Emil Ray M.D. on 07/16/16 at 1649 [facility] 1. Multiple bilateral pulmonary artery filling defects within all loves consistent with pulmonary embolism. There is also evidence of right heart strain 2. Bilateral scarring in lungs without acute consolidation or evidence of pulmonary infarcts 3. Enlarged mediastinal and hilar lymphnodes with calcifications are non specific but likely represent sequelae of old granulomatous disease Kyle Edwards M.D. 07/16/16 1741 . Cardiac Echo Impressions Echocardiogram Report Name: VISH BONILLA AStudgonzález Date: 07/17/2016 Interpretation Summary Left ventricular wall thickness is mild-moderately increased. Left ventricular systolic function is borderline reduced. Left ventricular ejection fraction is estimated to be 50 +/- 5%. Septal motion is consistent with conduction abnormality. There are no focal wall motion abnormalities. Assessment of diastolic parameters indicates a relaxation abnormality of the left ventricle, consistent with normal filling pressures. The right ventricle is normal in size and function. The right ventricular systolic pressure is estimated at 55 mmHg assuming a right atrial pressure of 8 mm Hg. Both atria are normal in size. There is no significant valvular heart disease. The ascending aorta is moderately enlarged. . Additional Diagnostics PROCEDURE: US VENOUS LEG DUPLEX BILATERAL IMPRESSION: No DVT found over either leg. Dictated by: Raj Taylor M.D. on 07/18/2016 at 13:53 Approved by: Raj Taylor M.D. on 07/18/2016 at 13:54 . Assessment & Plan Patient is an 86 y.o. 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 Admitted to hospital from [facility] for treatment of PE with concern for right sided heart strain. Acute and high-risk conditions: #. PE multiple, acute, present on admission. Initial concern for acute right heart failure not supported. PE seems to be provoked by warfarin discontinuation hypercoagulability. No residual DVT on Doppler studies. Patient does note that he stopped warfarin therapy weeks ago due to problems with his INR bouncing significantly. - Continue Heparin drip for PE per protocol day #4 today - dis continue Tele - insurance coverage is adequate for dabigatran - Okay to initiate on day 5 of heparinization 07/21/16 - Discharge home thereafter # Possible EtOH withdrawal, acute, not present on admission - No signs of acute alcohol withdrawal Chronic conditions Gout -Continue home med Insomnia - Melatonin 5 mg Anxiety -Ativan 0.5 mg PRN Depression -Continue home med Afib - Continue home med Lichen planus -continue home med HTN - Continue home med CODE STATUS: LIMITED INTERVENTIONS, NO VENT, NO INTUBATION DVT prophlyxis: Heparin drip per protocol Patient is admitted under inpatient status with expected length of stay greater than 2 midnights due to severity of presenting symptoms, risk of adverse event, and complexity of treatment plan. Pain Evaluation: Adequate Pain Control GI Prophylaxis: Not indicated VTE Prophylaxis: Sub-Q Heparin (Unfractionated) Resuscitation Status: Limited Interventions Time spent 30 minutes Charles Rodriguez MD Jul 20, 2016 15:38
--- NOTE | 2016-07-20 18:03 | NUR ---
ACTIVITY/CIWA Patient up and ambulating in room, only requires assistance w/ IV pole. Has ambulated in leon 2x this shift, tolerated activity well. No problems w/ HR or dyspnea w/ activity. CIWA score has been 0 this entire shift. No agitation, restlessness, etc... Plan for him to discharge tomorrow after morning dose of Pradaxa. His son will be here mid-morning to assist w/ transportation. Will continue to monitor CIWA, vitals and encourage ambulation.
[2016-07-21 03:19] VITALS: BP 127/73; PULSE 65; RESP 16; O2SAT 97
[2016-07-21 04:48] LABS: BASOPHILS % (AUTO) 0.3 % (0-3); MONOCYTES % (AUTO) 9.7 % (4-12); Mean Corpuscular Hemoglobin 35.6 pg (27.0-35.0); Mean Corpuscular Volume 107.5 fL (81-100); NEUTROPHILS % (AUTO) 68.5 % (40-74); Platelet Count 142 bil/L (150-400)
[2016-07-21 05:24] VITALS: PULSE 63
[2016-07-21 07:44] VITALS: BP 150/89; PULSE 66; RESP 18; O2SAT 97
--- NOTE | 2016-07-21 07:45 | NUR ---
Activity/Bridge Pt active in room, ambulating to either side of bed. Pt aware of medication bridge to start this morning.
[2016-07-21] MEDS: Multivit-Miner-Folic Acid-Iron Tablet PO SCH (07:51)
[2016-07-21] MEDS ORDERED: Dabigatran 150 mg Capsule PO SCH (08:30)
--- NOTE | 2016-07-21 12:28 | NUR ---
Discharge Pt discharged at approximately 1227 to home with son. Pt given educational material for pulmonary embolism and Pradaxa, followup note with HCP in one week, IV DC'd with catheter intact-gauze and Tegaderm applied, tele DCd transportation technician notified, prescription for Pradaxa in packet. Pt left with all personal belongings. Escorted by AGER OPERATOR in wheelchair to door.
--- NOTE | 2016-07-21 14:00 | NUR ---
Social Work Note: Discharge Data& Assessment: Per pt is medically ready to discharge. Ollie Chinchilla is a 86 year old male admitted on 07/16/2016 for pulmonary embolism. Per pt is medically improved and ready to discharge home via POV. Pt is ambulating close to baseline and will resume [facility] PT, OT, and RN. SW left a message for Maritza at [facility] notifying her of pt discharge. Discharge paperwork also faxed to Maritza at [facility]. Pt son at bedside and transporting pt home today. Pt denies any other needs. No other discharge needs identified. Plan: Per pt is medically improved and ready to discharge home via POV with resume [facility] PT, RN, and OT. Pt denies any other needs. No other discharge needs identified. All updated and agreeable to plan. TRINO Rodriguez
--- NOTE | 2016-07-25 21:57 | PCM.DC.MED ---
Discharge Summary Date of Service Jul 25, 2016 Dates of Hospitalization Date of Hospital Admission Jul 16, 2016 at 23:29 Date of Discharge: Jul 21, 2016 Providers: Admitting Physician: Antonio Ramirez MD Primary Care Physician: Amna Cardoza DO Attending Physician: Antonio Ramirez MD Diagnosis at Time of Discharge Diagnosis at Time of Discharge Pulmonary emboli Consultations Cardiology " ASSESSMENT AND PLAN: This gentleman has extensive pulmonary embolus. There is no obvious etiology. He has already been started on heparin. He needs to be on long-term anticoagulation. At this point, there is no indication for catheter-directed thrombolysis and there is no indication for placement of an IVC filter either. I have discussed all this with the patient. I have not made any formal arrangements to see him in followup, but would be happy to reassess him on an as needed basis. I thank you for letting me be involved in his care. Santosh Schrader MD 07/18/16 7432" Pulmonology, " Pulmonology consult: Attending provider Dr. Hutton. Requesting provider Dr. Schrader. Reason for consult; PE with anticoagulation barriers. Mr. Chinchilla is a 86-year-old male with past medical history for PE, DVT, depression, A. fib who was a direct admit from [facility] for treatment of a pulmonary embolism with right-sided heart strain. Previous to hospital admission patient was anticoagulated with warfarin however due to fluctuating INR levels (which he reports being due to moderate alcohol consumption and green leafy vegetables) warfarin was discontinued approximately 3 weeks ago. Pt does not want to resume taking warfarin and when told that he may have to stay in hospital for 1-2 additional days for heparin administration and to solidify home anticoagulation medication he stated that he has lived a good life and he is ready to go further stating that his 6 weeks ago and he is feeling very depressed about this. During interview patient opened up and shared that he was for 57 years, received his PhD from [employer] working at [employer] for most of his career. 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 He states that if his health were to return to state that would enable him to continue playing music he would have a renewed vigor with life. " . Procedures XRay, CTs & MRIs CXR [facility] IMPRESSION: Interval improvement with resolution of right upper lobe opacities. Mild interstitial stranding densities may be chronic. Follow up non contrast CT chest might be considered to compare with previous CTA of 06/28/2014 Emil Ray M.D. on 07/16/16 at 1649 CTA [facility] 1. Multiple bilateral pulmonary artery filling defects within all loves consistent with pulmonary embolism. There is also evidence of right heart strain 2. Bilateral scarring in lungs without acute consolidation or evidence of pulmonary infarcts 3. Enlarged mediastinal and hilar lymphnodes with calcifications are non specific but likely represent sequelae of old granulomatous disease Kyle Edwards M.D. 07/16/16 1741 PROCEDURE: US VENOUS LEG DUPLEX BILATERAL IMPRESSION: No DVT found over either leg. Dictated by: Raj Taylor M.D. on 07/18/2016 at 13:53 . Cardiac Echo Impression Echocardiogram Report Name: VISH CHINCHILLA Study Date: 07/17/2016 Interpretation Summary Left ventricular wall thickness is mild-moderately increased. Left ventricular systolic function is borderline reduced. Left ventricular ejection fraction is estimated to be 50 +/- 5%. Septal motion is consistent with conduction abnormality. There are no focal wall motion abnormalities. Assessment of diastolic parameters indicates a relaxation abnormality of the left ventricle, consistent with normal filling pressures. The right ventricle is normal in size and function. The right ventricular systolic pressure is estimated at 55 mmHg assuming a right atrial pressure of 8 mm Hg. Both atria are normal in size. There is no significant valvular heart disease. The ascending aorta is moderately enlarged. . Other Diagnostics PROCEDURE: US VENOUS LEG DUPLEX BILATERAL IMPRESSION: No DVT found over either leg. Dictated by: Raj Taylor M.D. on 07/18/2016 at 13:53 Approved by: Raj Taylor M.D. on 07/18/2016 at 13:54 . Brief History History of Present Illness (per admission note): Patient is an 86 y.o. 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 Patient is a direct admit from [facility] for treatment of pulmonary embolism with right sided heart strain. Patient stated that he was feeling fine until three weeks ago when he began to fee fatigued, he noticed elevation in his blood pressure, had episodes of tachycardia, and worsening balance issues. Patient sought outpatient help, changed his blood pressure medications and started home health PT, all of which did not significantly help. Patient stated that on the evening of 07/15/16 and the morning of 07/16/16 his symptoms dramatically worsened " I could only walk 50 feet before I felt short of breath and had to sit down," he noted that symptoms quickly resolved but he was worried and sought emergency medical care. At the ED patient noted to be tachycardic, short of breath, CT scan of chest was done and showed PE with right sided heart strain Hospital Course #. PE multiple, acute, present on admission. Initial concern for acute right heart failure not supported. PE seems to be provoked by warfarin discontinuation hypercoagulability. No residual DVT on Doppler studies. Patient does note that he stopped warfarin therapy weeks ago due to problems with his INR bouncing significantly. - Continue Heparin drip for PE per protocol day #5 - insurance coverage is adequate for dabigatran - Okay to initiate on day 5 of heparinization 07/21/16 Chronic conditions Gout -Continue home med Insomnia - Melatonin 5 mg Anxiety -Ativan 0.5 mg PRN Depression -Continue home med Afib - Continue home med Lichen planus -continue home med HTN - Continue home med CODE STATUS: LIMITED INTERVENTIONS, NO VENT, NO INTUBATION . Exam Vital Signs (Last) Date Time Temp Pulse Resp B/P Pulse Ox O2 Delivery O2 Flow Rate FiO2 07/21/16 07:44 36.9 66 18 150/89 97 Room Air Exam General: Elderly gentleman in no acute distress HEENT: sclerae anicteric, oral mucosa moist Neck: no JVD Chest: clear to auscultation Cardiac: S1S2, regular, no murmur Abdomen: BS normal, non-tender Extremities: No pedal edema Neuro: A&O, cranial nerves symmetric, motor strength 5/5 Test 07/17/16 00:12 07/17/16 00:50 07/17/16 12:45 07/21/16 04:05 Prothrombin Time 10.7sec (8.1-12.5) Prothromb Time International Ratio 1.00ratio Magnesium Level 1.7mg/dL (1.6-2.6) Urine Color Yellow (YELLOW) Urine Appearance Clear (CLEAR,HAZY) Urine pH 7.0 (5.0-8.0) Urine Specific [place] 1.005 (1.003-1.035) Urine Protein Negativemg/dL (NEG,TRACE) Urine Glucose (UA) Negativemg/dL (NEGATIVE) Urine Ketones Negativemg/dL (NEGATIVE) Urine Occult Blood Trace (NEGATIVE) Urine Nitrite Negative (NEGATIVE) Urine Bilirubin Negative (NEGATIVE) Urine Urobilinogen 1.0mg/dL (NORMAL) Urine Leukocyte Esterase Negative (NEGATIVE) Urine RBC 3-10/hpf (0-2) Urine WBC 0-5/hpf (0-5) Urine Epithelial Cells Occasional/hpf (NONE-MOD) Urine Crystals None seen (NONE SEEN) Urine Bacteria Few/hpf (NONE-FEW) Urine Hyaline Casts None/lpf (NONE) Urine Granular Casts None seen (NONE SEEN) Urine Waxy Casts None seen (NONE SEEN) Urine Red Blood Cell Casts None seen (NONE SEEN) Urine White Blood Cell Casts None seen (NONE SEEN) Urine Mucus None seen (None Seen) Urine Trichomonas None seen (NONE SEEN) Urine Yeast None (NONE SEEN) Urinalysis Comment None Urine Culture Reflexed Not indicated Troponin T 0.010ug/L (0.0-0.011) White Blood Count 6.0th/mm3 (3.8-10.1) Red Blood Count 2.67mil/mm3 (4.40-5.80) Hemoglobin 9.5g/dL (13.8-17.2) Hematocrit 28.7% (41.0-50.0) Mean Corpuscular Volume 107.5fL (81-100) Mean Corpuscular Hemoglobin 35.6pg (27.0-35.0) Mean Corpuscular Hemoglobin Concent 33.1% (32.0-37.0) Red Cell Distribution Width 14.6% (12.3-15.4) Platelet Count 142bil/L (150-400) Neutrophils (%) (Auto) 68.5% (40-74) Lymphocytes (%) (Auto) 19.0% (14-46) Monocytes (%) (Auto) 9.7% (4-12) Eosinophils (%) (Auto) 2.0% (0-5) Basophils (%) (Auto) 0.3% (0-3) Activated Partial Thromboplast Time 69.5sec (22.8-33.0) Sodium Level 136mEq/L (134-144) Potassium Level 4.2mEq/L (3.5-5.2) Chloride Level 107mEq/L (97-108) Carbon Dioxide Level 18mmol/L (18-29) Blood Urea Nitrogen 15mg/dL (8-27) Creatinine 1.24mg/dL (0.76-1.27) Estimat Glomerular Filtration Rate 59mL/min (>59) Glucose Level 83mg/dL (60-99) Calcium Level 8.2mg/dL (8.5-10.1) Total Bilirubin 0.3mg/dL (0.0-1.2) Aspartate Amino Transf (AST/SGOT) 19U/L (0-50) Alanine Aminotransferase (ALT/SGPT) 10U/L (0-44) Alkaline Phosphatase 70U/L (25-160) Total Protein 5.9g/dL (6.4-8.4) Albumin 2.7g/dL (3.4-5.0) Discharge Medications Discharge Medications Allopurinol (Allopurinol) 100 Mg Tablet 100 MG PO DAILY (Reported) Carvedilol (Carvedilol) 25 Mg Tablet 25 MG PO BID (Reported) Dabigatran Etexilate Mesylate (Pradaxa) 150 Mg Capsule 150 MG PO BID Prescribed by: PEREZ PLUNKETT MD Testosterone Cypionate (Testosterone Cypionate) 200 Mg/1 Ml Vial 200 MG IM once a month (Reported) Venlafaxine (Venlafaxine) 37.5 Mg Tablet 37.5 MG PO BID (Reported) As needed Clobetasol Propionate/Emoll (Clobetasol Emollient 0.05% Crm) 15 Gm Cream..g. 1 APPL TOPICAL DAILY PRN PRN For Itching (Reported) Followup Plan Discharge Diet: Heart Healthy Discharge Activity: Other (as tolerated. Avoid any activities which she may fall or injure yourself due to you taking anticoagulation.) Follow-up Provider: Amna Cardoza DO Follow-up with PCP in: 1 week Time spent 35 min copies to: Amna Cardoza Jeffrey W MD Jul 25, 2016 21:57
== END 2016-07-21 12:38 | disposition home or self-care (01) | DRG 176 ==
LOC: PCC 23:29
PROVIDERS: ADMIT Hospitalist; ATTEND Hospitalist
PROC: 4A033R1 Measurement of Arterial Saturation, Peripheral, Percutaneous Approach (ICD-10-PCS; principal; 2016-07-17)
DX: I26.99 Other pulmonary embolism without acute cor pulmonale (principal); Z86.718 Personal history of other venous thrombosis and embolism; Z87.891 Personal history of nicotine dependence; M10.9 Gout, unspecified; G47.00 Insomnia, unspecified; F41.9 Anxiety disorder, unspecified; F32.9 Major depressive disorder, single episode, unspecified; I48.91 Unspecified atrial fibrillation; L43.9 Lichen planus, unspecified; I10 Essential (primary) hypertension; T45.516A Underdosing of anticoagulants, initial encounter; Z91.128 Patient's intentional underdosing of medication regimen for other reason; R79.1 Abnormal coagulation profile